=== PATIENT | female | born 1955 | race Caucasian/White ===

== ENCOUNTER 2019-03-13 12:06 | Outpatient (CLI) | payer BC ==
[~2019-03-13 12:06] MED LIST: BUPR-84 PO; CHOL400T14 PO; MULT-38 PO; NAPR-56 PO
[2019-03-13 13:09] LABS: HEMATOCRIT 38.5 % (35.0-45.0); RED BLOOD COUNT 4.24 X10'6 (4.20-5.60); WHITE BLOOD COUNT 5.4 X10'3 (4.5-11.0)
[2019-03-13 13:10] LABS: BASOPHILS % (AUTO) 0.9 % (0-1); EOSINOPHILS # (AUTO) 0.1 X10'3 (0-0.9); EOSINOPHILS % (AUTO) 1.5 % (0-6); LYMPHOCYTES # (AUTO) 1.7 X10'3 (1.1-4.8); LYMPHOCYTES % (AUTO) 30.9 % (21-51); MEAN CORPUSCULAR HEMOGLOBIN 30.5 PG (27.0-31.0); MEAN CORPUSCULAR HGB CONC 33.7 g/dL (33.0-36.5); MEAN CORPUSCULAR VOLUME 90.7 FL (78-98); MEAN PLATELET VOLUME 9.1 FL (7.4-10.4); MONOCYTES # (AUTO) 0.5 X10'3 (0-0.9); MONOCYTES % (AUTO) 9.6 % (2-12); NEUTROPHILS # (AUTO) 3.1 X10'3 (1.8-7.7); NEUTROPHILS % (AUTO) 57.1 % (42-75); PLATELET COUNT 273 X10'3 (140-440); RED CELL DISTRIBUTION WIDTH 13.6 % (11.5-14.5)
[2019-03-13 13:21] LABS: PARTIAL THROMBOPLASTIN TIME 25 SECONDS (22-32)
[2019-03-13 13:23] LABS: ALANINE AMINOTRANSFERASE 25 U/L (12-78); ALBUMIN 3.5 G/DL (3.4-5.0); ALBUMIN/GLOBULIN RATIO 0.9 (1.1-1.5); ALKALINE PHOSPHATASE 96 IU/L (46-116); ANION GAP 6 (8-16); ASPARTATE AMINO TRANSFERASE 22 U/L (10-37); BILIRUBIN,TOTAL 0.4 MG/DL (0.1-1.0); BLOOD UREA NITROGEN 11 MG/DL (7-18); BUN/CREATININE RATIO 9.9 (6.6-38.0); CALCIUM 8.6 MG/DL (8.5-10.1); CHLORIDE 104 MMOL/L (99-107); CREATININE 1.11 MG/DL (0.40-0.90); GLUCOSE 87 MG/DL (70-104); POTASSIUM 4.1 MMOL/L (3.5-5.1); SODIUM 139 MMOL/L (135-145); TOTAL CARBON DIOXIDE 29.4 MMOL/L (24-32); TOTAL PROTEIN 7.4 G/DL (6.4-8.2); eGFR 49 ML/MIN
== END 2019-03-13 23:59 | disposition home or self-care (01) ==
LOC: LAB 12:06
PROVIDERS: ATTEND Otolaryngology
DX: D69.1 Qualitative platelet defects (principal); Z87.891 Personal history of nicotine dependence
CPT/HCPCS: 36415; 80053; 85025; 85576; 85610; 85730

== ENCOUNTER 2019-06-11 06:44 | Inpatient (IN) | payer BC ==
[2019-06-03 16:25] LABS: BASOPHILS % (AUTO) 0.7 % (0-1); EOSINOPHILS # (AUTO) 0.1 X10'3 (0-0.9); EOSINOPHILS % (AUTO) 2.5 % (0-6); LYMPHOCYTES # (AUTO) 1.8 X10'3 (1.1-4.8); LYMPHOCYTES % (AUTO) 32.8 % (21-51); MEAN CORPUSCULAR HEMOGLOBIN 29.5 PG (27.0-31.0); MEAN CORPUSCULAR HGB CONC 33.3 g/dL (33.0-36.5); MEAN CORPUSCULAR VOLUME 88.4 FL (78-98); MEAN PLATELET VOLUME 8.6 FL (7.4-10.4); MONOCYTES # (AUTO) 0.6 X10'3 (0-0.9); MONOCYTES % (AUTO) 10.7 % (2-12); NEUTROPHILS % (AUTO) 53.3 % (42-75); PRE OP HEMATOCRIT 35.6 % (35.0-45.0); PRE OP HEMOGLOBIN 11.9 g/dL (12.0-16.0); PRE OP PLATELET COUNT 287 X10'3 (140-440); RED BLOOD COUNT 4.03 X10'6 (4.20-5.60); RED CELL DISTRIBUTION WIDTH 14.1 % (11.5-14.5)
[2019-06-03 16:39] LABS: PRE OP PROTIME 9.9 SECONDS (9.0-12.0)
[2019-06-03 16:41] LABS: ALBUMIN 3.5 G/DL (3.4-5.0); ALBUMIN/GLOBULIN RATIO 1.1 (1.1-1.5); ALKALINE PHOSPHATASE 100 IU/L (46-116); BLOOD UREA NITROGEN 13 MG/DL (7-18); BUN/CREATININE RATIO 12.4 (6.6-38.0); CALCIUM 8.4 MG/DL (8.5-10.1); CHLORIDE 106 MMOL/L (99-107); CREATININE 1.05 MG/DL (0.40-0.90); PRE OP ALT 30 U/L (30-65); PRE OP ANION GAP 7 (8-16); PRE OP AST 24 U/L (10-37); PRE OP BILIRUB, TOTAL 0.3 MG/DL (0.0-1.0); PRE OP GLUCOSE 68 MG/DL (70-104); PRE OP POTASSIUM 3.8 MMOL/L (3.4-5.1); PRE OP SODIUM 141 MMOL/L (135-145); TOTAL CARBON DIOXIDE 28.3 MMOL/L (24-32); TOTAL PROTEIN 6.8 G/DL (6.4-8.2); eGFR 53 ML/MIN
[2019-06-11] VITALS (19 sets, daily range): BP systolic 109–183; BP diastolic 58–99
[~2019-06-11] VITALS: Ht 165.1 cm; Wt 106.8 kg
[~2019-06-11 06:44] MED LIST changes: +ACET-75 PO; +BUPR-72 PO; -BUPR-84 PO; +HYDROmorphone inj. 0.5 MG/0.5 ML DISP.SYRIN IV PRN; +IBUP-24 PO; -NAPR-56 PO; +acetaminophen 325mg tablet PO ONE; +acetaminophen 325mg tablet PO PRN; +bisacodyl 10mg suppository rectal RC PRN; +cefazolin/dext.iso 2gm/100ml 100 ML IV ONE; +celeCOXIB 100mg capsule PO ONE; +diphenhydrAMINE 25mg capsule PO PRN; +famotidine 10mg tablet PO ONE; +gabapentin 300mg capsule PO ONE; +magnesium hydroxide 30ml (MOM) UD suspension PO PRN; +metoclopramide 5 mg/ml inj IV ONE; +ondansetron/PF 4mg/2ml inj IV PRN; +oxyCODONE SR 10mg (sust. release) tab -2 tabs (20mg) PO ONE; +oxyCODONE/APAP 10/325mg tablet PO PRN; +ringers solution, lacted 1,000 ML IV SCH; +tranexamic acid inj. 1,000 MG in normal saline 100 ML IV ONE; +vancomycin inj 1,500 MG in normal saline 300ml IV soln IV ONE
[2019-06-11] MEDS ORDERED: vancomycin 1,000mg inj ONE (06:53)
[2019-06-11] MEDS ORDERED: epiNEPHrine 1 mg/ml inj ONE (06:53)
[2019-06-11] MEDS ORDERED: ketorolac trometh. 30mg/ml inj. ONE (06:53)
[2019-06-11] MEDS ORDERED: cloNIDine hcl/PF 100mcg/ml inj ONE (06:53)
[2019-06-11] MEDS ORDERED: ROPIVAcaine 0.5% (5mg/ml) 30ml vial ONE ×2 (06:54→09:06)
[2019-06-11] MEDS: multivitamins, therapeutics tablet PO SCH (08:00)
[2019-06-11] MEDS: gabapentin 300mg capsule PO SCH ×3 (08:00→20:37)
[2019-06-11] MEDS: ascorbic acid 500mg tablet PO SCH ×2 (08:00→20:37)
[2019-06-11] MEDS: buPROPion SR 150mg tablet PO SCH ×2 (08:00→20:37)
[2019-06-11] MEDS ORDERED: fentaNYL/PF 50MCG/1 ML 2ML syringe ONE (08:04)
[2019-06-11] MEDS ORDERED: MIDAZolam 1mg/ml 10ml vial ONE (08:04)
[2019-06-11] MEDS: aspirin 325mg tablet PO SCH (08:06)
[2019-06-11] MEDS ORDERED: propofol inj 20 ML IV ONE ×2 (08:16)
[2019-06-11] MEDS ORDERED: ringers solution, lacted 1,000 ML IV SCH (08:18)
[2019-06-11] MEDS ORDERED: labetalol 20mg/4ml (5mg/ml) syringe IV PRN (08:20)
[2019-06-11] MEDS ORDERED: hydrALAZINE 20mg/ml inj. IV PRN (08:20)
[2019-06-11] MEDS ORDERED: ondansetron/PF 4mg/2ml inj IV PRN (08:20)
[2019-06-11] MEDS ORDERED: fentaNYL/PF 50MCG/1 ML 2ML syringe IV PRN ×2 (08:20)
[2019-06-11] MEDS ORDERED: ROPIVAcaine 0.2% (10 MG/5 ML) BOLUS INJECTION ADDCANAL PRN (08:20)
[2019-06-11] MEDS ORDERED: morphine 4 MG/ML inj SYRINge IV PRN ×2 (08:20)
[2019-06-11] MEDS ORDERED: dexamethasone sod phosphate 4mg/ml inj. ONE (09:06)
--- NOTE | 2019-06-11 10:09 | NUR ---
Received from OR via bed, accompanied by Anesthesiologist Babatunde and report given by Anesthesiolgist. pt awake and pain level is 0.extremities warm and pink with good pulses bilaterally, scds applied. spinal level at umbilicus. mary dressing dry and intact.block catheter intact rle.c/o right shoulder discomfort, pillow used for support.
[2019-06-11] MEDS: ROPIVAcaine 0.2%/PF PUMP/bolus 550 ML ADDCANAL SCH (11:30)
--- NOTE | 2019-06-11 11:32 | NUR ---
Report called to receiving nurse. Transferred via bed Belongings . Special Issues communicated to receiving nurse. awake with no complaint of pain, extremities warm and pink with good pulses. spinal level at umbilicus, on-q pump connected and running. acticoat and mary dressing clean dry and intact,with scds running and ice pack applied. to room 5817u
--- NOTE | 2019-06-11 11:35 | NUR ---
Patient has arrived to the Ortho[facility]uro by bing, patient is transferred to hospital bed. The charge nurse and CHARY Chavarria set patient up with IV running and tucked patient in for me.
--- NOTE | 2019-06-11 13:35 | NUR ---
Patient reports that she is having more pain. Patient reports that she has pushed the bolus button 2 more times. The dose was then increased on the pump to 14 ml/hr by Charge nurse, CHARY Mayo.
[2019-06-11] MEDS ORDERED: tranexamic acid inj. 1,000 MG in normal saline 100ml IV soln 100 ML IV ONE (14:00)
--- NOTE | 2019-06-11 14:00 | NUR ---
Noted Ropivicaine OnQ pump to patient's right knee. It is set at 2 ml/hr. Patient reports that she has pushed to Bolus one time.
[2019-06-11] MEDS: potassium cl 20mEq in 1/2 NS 1,000 ML IV SCH ×3 (14:32→22:32)
[2019-06-11] MEDS: cefazolin/dext.iso 2gm/100ml 100 ML IV SCH (16:34)
[2019-06-11] MEDS: HYDROmorphone 1 mg/ml syringe IV PRN (16:50)
[2019-06-11] MEDS ORDERED: sennosides 8.6mg tablet PO SCH (21:00)
[2019-06-11] MEDS: oxyCODONE/APAP 10/325mg tablet PO PRN (21:53)
[2019-06-12] MEDS: cefazolin/dext.iso 2gm/100ml 100 ML IV SCH (00:03)
[2019-06-12 02:00] VITALS: BP 119/66
--- NOTE | 2019-06-12 02:30 | NUR ---
Pt ropivocaine pump set at 14, pt is using bolus appropriately and is stating that she is still in 9/10pain. Percocet 10/325 2 tabs given for pain. Benadryl given at midnight for sleep.
--- NOTE | 2019-06-12 02:32 | NUR ---
pt states that the SCD's are keeping her awake and possibly causing her knee to hurt worse. Pt is ambulating to and has been educated to continue leg exercises while awake.
[2019-06-12] MEDS: oxyCODONE/APAP 10/325mg tablet PO PRN ×3 (04:25→14:37)
[2019-06-12 06:00] VITALS: BP 107/52
--- NOTE | 2019-06-12 06:00 | NUR ---
Patient in room ORTHO 4021. I have received report from FLORIAN DIEZ and had the opportunity to ask questions and assume patient care.
--- NOTE | 2019-06-12 06:26 | NUR ---
Report given to whitney Diaz.
[2019-06-12 06:36] LABS: BASOPHILS % (AUTO) 0.3 % (0-1); EOSINOPHILS % (AUTO) 0.7 % (0-6); HEMATOCRIT 31.4 % (35.0-45.0); HEMOGLOBIN 10.6 g/dl (12.0-16.0); LYMPHOCYTES # (AUTO) 1.3 X10'3 (1.1-4.8); LYMPHOCYTES % (AUTO) 17.9 % (21-51); MEAN CORPUSCULAR HEMOGLOBIN 29.8 PG (27.0-31.0); MEAN CORPUSCULAR HGB CONC 33.8 g/dL (33.0-36.5); MEAN CORPUSCULAR VOLUME 88.2 FL (78-98); MONOCYTES # (AUTO) 1.1 X10'3 (0-0.9); NEUTROPHILS # (AUTO) 4.9 X10'3 (1.8-7.7); NEUTROPHILS % (AUTO) 66.1 % (42-75); PLATELET COUNT 245 X10'3 (140-440); RED BLOOD COUNT 3.56 X10'6 (4.20-5.60); RED CELL DISTRIBUTION WIDTH 13.9 % (11.5-14.5); WHITE BLOOD COUNT 7.4 X10'3 (4.5-11.0)
[2019-06-12] MEDS: HYDROmorphone 1 mg/ml syringe IV PRN (06:49)
[2019-06-12 07:16] LABS: ANION GAP 10 (8-16); CHLORIDE 104 MMOL/L (99-107); POTASSIUM 4.1 MMOL/L (3.5-5.1); SODIUM 138 MMOL/L (135-145); TOTAL CARBON DIOXIDE 24.3 MMOL/L (24-32)
[2019-06-12] MEDS: buPROPion SR 150mg tablet PO SCH (07:57)
[2019-06-12] MEDS: multivitamins, therapeutics tablet PO SCH (07:57)
[2019-06-12] MEDS: gabapentin 300mg capsule PO SCH ×2 (07:57→13:00)
[2019-06-12] MEDS: aspirin 325mg tablet PO SCH (07:57)
[2019-06-12] MEDS: ascorbic acid 500mg tablet PO SCH (07:57)
[2019-06-12 10:00] VITALS: BP 104/64
[2019-06-12] MEDS: ROPIVAcaine 0.2%/PF PUMP/bolus 550 ML ADDCANAL SCH (10:38)
--- NOTE | 2019-06-12 12:44 | NUR ---
Joint replacement consult: Pt seen by PAMELA for written/verbal high protein ed. RD reviewed high protein needs for wound healing, immune strength, high protein foods, and protein supplementation options. RD contact information provided in case of further questions. Pt agrees to chocolate ensure pudding BIDBL; dietary notified. Addendum: 06/12/19 at [address] Amended: Links added.
--- NOTE | 2019-06-12 15:00 | NUR ---
PATIENT DISCHARGED SAFELY HOME WITH WITH ALL BELONGINGS IN POSSESSION. PATIENT VERBALIZES UNDERSTANDING OF DISCHARGE INSTRUCTIONS.
[2019-06-12] MEDS ORDERED: celeCOXIB 100mg capsule PO SCH (20:00)
== END 2019-06-12 15:00 | disposition home or self-care (01) | DRG 470 ==
LOC: PAS 06:44 → OBSVTOIN 11:46 → ORTHO 4S 11:46
PROVIDERS: ADMIT Orthopaedic Surgery; ATTEND Orthopaedic Surgery
PROC: 3E0T3BZ Introduction of Anesthetic Agent into Peripheral Nerves and Plexi, Percutaneous Approach (ICD-10-PCS; 2019-06-11)
PROC: 0SRC0J9 Replacement of Right Knee Joint with Synthetic Substitute, Cemented, Open Approach (ICD-10-PCS; principal; 2019-06-11 08:00)
DX: M17.11 Unilateral primary osteoarthritis, right knee (principal); D62 Acute posthemorrhagic anemia; I10 Essential (primary) hypertension; Z96.651 Presence of right artificial knee joint; I48.91 Unspecified atrial fibrillation; F32.9 Major depressive disorder, single episode, unspecified
CPT/HCPCS: Z7506; Z7508; 36415; 71046; 73560; 80051; 80053; 82948; 85025; 85610; 85730; 86885; 86900; 86901; 87081; 97110; 97116; 97161; A4215; A6449; A6454; A7000; C1713; C1776; G0378; J0171; J0735; J1100; J1170; J1885; J2250; J2405; J2704; J2765; J2795; J3010; J3370; J3480; J7120; Q0163